=== PATIENT | male | born 1980 | race Two or more races ===

== ENCOUNTER 2019-05-29 16:15 | Emergency (ER) | payer MEDICAID ==
[~2019-05-29] VITALS: Ht 154.9 cm; Wt 74.8 kg
[2019-05-29 16:25] VITALS: BP 132/78
[2019-05-29] MEDS ORDERED: IBUPROFEN 600 MG TABLET PO ONE (17:01)
[2019-05-29] MEDS: IBUPROFEN 600 MG TABLET PO ONE (17:03)
== END 2019-05-29 18:17 | disposition home or self-care (01) ==
LOC: ER 16:20
DX: S93.491A Sprain of other ligament of right ankle, initial encounter (principal); S90.31XA Contusion of right foot, initial encounter; I10 Essential (primary) hypertension; E11.9 Type 2 diabetes mellitus without complications; X50.1XXA Overexertion from prolonged static or awkward postures, initial encounter; Y93.89 Activity, other specified; Y92.89 Other specified places as the place of occurrence of the external cause; Y99.8 Other external cause status
CPT/HCPCS: 73610-TC; 73630-TC